=== PATIENT | female | born 2000 | race American Indian/Alaskan Native ===

== ENCOUNTER 2019-03-25 20:41 | Emergency (ER) | payer SELFPAY ==
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
[2019-03-25 21:29] VITALS: BP 121/73
[2019-03-25] MEDS ORDERED: NACL 0.9% IR ONE (22:47)
[2019-03-25] MEDS ORDERED: IBUPROFEN PO ONE (22:48)
[2019-03-25] MEDS ORDERED: NACL 0.9% 1000 ML 1,000 ML IV ONE (22:57)
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
== END 2019-03-26 01:12 | disposition home or self-care (01) ==
LOC: ED 20:41
DX: T15.90XA Foreign body on external eye, part unspecified, unspecified eye, initial encounter (principal); Y93.89 Activity, other specified
CPT/HCPCS: 99283; J7030